=== PATIENT | female | born 2000 | race Caucasian/White ===

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

== ENCOUNTER 2019-04-08 01:16 | Emergency (ER) | payer SELFPAY ==
[2019-04-08 01:34] VITALS: BP 148/86; PULSE 105; RESP 18; TEMP 36.7; O2SAT 96; BMI 27.4
--- NOTE | 2019-04-08 01:36 | ED.GENADULT ---
HPI - General Adult <Pavan Summers DO - Last Filed: 04/08/19 18:00> General Chief complaint: Psychiatric Symptoms Stated complaint: Suicidal Time Seen by Provider: 04/08/19 01:31 Source: patient and police Mode of arrival: other (Police) Limitations: no limitations History of Present Illness HPI narrative: Patient is a 19-year-old female. Was brought in by police in handcuffs after they were called to the patient's house for an alleged suicide attempt. Patient called the crisis line earlier this evening and told them that she had cut herself and took medications. Her address was found through her cell phone location and the police were dispatched to that facility. Patient did admit to drinking alcohol this evening. She states that this evening she ?just broke ?. She has had a history of mental health issues in the past. Is currently on medications. Please report that the patient was combative and violent at the house which is why she was brought in in handcuffs. Patient stated that she did take medications this evening but it was double the dose of her normal medications. She did make superficial cuts to her arms. She did admit to calling the crisis line. She stated that she is scheduled to return to school in a week and I have and was ?not mentally prepared ?to do this which is what apparently put her over the edge this evening. Related Data Previous Rx's Medication Instructions Recorded cholecalciferol (vitamin D3) 1,000 unit PO QDAY #30 tab 10/14/17 [Vitamin D3] hydroxyzine pamoate [Vistaril] 50 mg PO BIDP PRN #60 cap 10/14/17 nitrofurantoin macrocrystal 100 mg 100 mg PO BEDTIME #30 cap 03/25/18 capsule mirtazapine 30 mg tablet 30 mg PO HS #30 tab 01/18/19 venlafaxine 150 mg tablet,extended 300 mg PO QAM #60 tab 01/18/19 release 24 hr prazosin 5 mg capsule 5 mg PO BEDTIME #30 cap 03/15/19 Allergies Allergy/AdvReac Type Severity Reaction Status Date / Time No Known Drug Allergies Allergy Verified 01/18/19 08:32 Review of Systems <Pavan Summers DO - Last Filed: 04/08/19 18:00> Constitutional Constitutional: Denies headache(s) ENT Ears, Nose, Mouth, and Throat: Denies headache(s) and Denies disequilibrium Cardiovascular Cardiovascular: Denies chest pain and Denies dyspnea Respiratory Respiratory: Denies dyspnea Gastrointestinal Gastrointestinal: Denies abdominal pain Genitourinary Genitourinary: Denies dysuria Musculoskeletal Musculoskeletal: Denies myalgias and Denies arthralgias Integumentary/Breasts Comments: Cut to her left arm and left leg Neurologic Neurologic: Reports behavioral changes, Denies confusion, Denies headache(s) and Denies disequilibrium Psychiatric Psychiatric: Reports anxiety, Reports behavioral changes, Denies confusion, Reports depression, Reports hopelessness, Reports irritability and Reports suicidal ideation Hematologic/Lymphatic Hematologic/Lymphatic: Denies easy bleeding and Denies easy bruising PFSH <Pavan Summers DO - Last Filed: 04/08/19 18:00> Medical History Anorexia nervosa (Chronic 08/13/17) Cannabis dependence (Chronic) Major depressive disorder, recurrent, in partial remission (Chronic) Oppositional behavior (Chronic) PTSD (post-traumatic stress disorder) (Chronic) Social anxiety disorder (Chronic) Subclinical hyperthyroidism (Chronic 08/13/17) Social History Smoking Status: Current some day smoker Exam <Pavan Summers DO - Last Filed: 04/08/19 18:00> Initial Vital Signs Initial Vital Signs: Vital Signs Temperature 98.0 F 04/08/19 01:34 Pulse Rate 105 H 04/08/19 01:34 Respiratory Rate 18 04/08/19 01:34 Blood Pressure 148/86 H 04/08/19 01:34 Pulse Oximetry 96 04/08/19 01:34 Const General: cooperative, comfortable, well developed and well groomed Orientation: alert and awake [facility] Head: normal to inspection and normocephalic Resp Effort & Inspection: normal respiratory effort Auscultation: clear to auscultation bilaterally Cardio Rate: regular rate Rhythm: regular rhythm Pulses: radial pulses present GI Inspection: non-distended Palpation: soft Skin Other: Patient with multiple superficial wounds on the volar aspect of her left arm. No active bleeding. None in need of interventions here in the ER. Patient also with multiple superficial cuts to the medial aspect to the distal 3rd of her left leg. No active bleeding. No surrounding erythema. None in need of intervention here in the ER. Neuro General: alert and awake Speech: speech normal Extrem General: normal to inspection and capillary refill normal Psych Appearance: disheveled Speech and Movement: agitated and restless Mood: anxious mood and No angry Affect: sad and anxious affect Attitude: cooperative Thought Process: normal Thought Content: no homicidality and suicidality Judgment: limited <Katelyn Bose MD - Last Filed: 04/09/19 16:28> Initial Vital Signs Initial Vital Signs: Vital Signs Temperature 98.0 F 04/08/19 01:34 Pulse Rate 105 H 04/08/19 01:34 Respiratory Rate 18 04/08/19 01:34 Blood Pressure 148/86 H 04/08/19 01:34 Pulse Oximetry 96 04/08/19 01:34 Course <Pavan Summers DO - Last Filed: 04/08/19 18:00> Orders Ordered: ED Orders 04/08/19 01:50 Consult to Office Cashier Stat 04/08/19 02:00 Urine Drug Screen, Rapid Stat 04/08/19 02:02 Acetaminophen Stat Complete Blood Count AUTO DIFF Stat Comprehensive Metabolic Panel Stat Ethanol (ETOH) Stat Test Serum,Qual Stat Salicylate Stat 04/08/19 05:34 Ethanol (ETOH) Stat Vital Signs Vital signs: Vital Signs - 8 hr 04/08/19 10:30 Pulse Rate 70 Respiratory Rate 16 Blood Pressure [Left Arm] 94/60 Pulse Oximetry 100 <Katelyn Bose MD - Last Filed: 04/09/19 16:28> Course Course Narrative: Juice note: Patient was signed out to me by Dr. Summers, pending mental health evaluation. galley worker did come and speak with the patient, who was sober and no longer suicidal. The patient was well connected with Dr. Musa of Psychiatry already, and also, he had social support form. Both the patient and social services technician felt it would be reasonable for the patient to follow up in an expedited fashion with Dr. Musa. The patient did contract for safety, and was deemed stable for discharge home. She is medically stable at the time of discharge. We have discussed the usual indications for return. Orders Ordered: ED Orders 04/08/19 01:50 Consult to Office Cashier Stat 04/08/19 02:00 Urine Drug Screen, Rapid Stat 04/08/19 02:02 Acetaminophen Stat Complete Blood Count AUTO DIFF Stat Comprehensive Metabolic Panel Stat Ethanol (ETOH) Stat Test Serum,Qual Stat Salicylate Stat 04/08/19 05:34 Ethanol (ETOH) Stat Vital Signs Vital signs: Vital Signs - 8 hr 04/08/19 10:30 Pulse Rate 70 Respiratory Rate 16 Blood Pressure [Left Arm] 94/60 Pulse Oximetry 100 Medical Decision Making <Pavan Summers, DO - Last Filed: 04/08/19 18:00> Medical Records Medical records reviewed: Yes I reviewed the patient's medical records. Lab Data Lab results reviewed: Yes I reviewed the patient's lab results. Result diagrams: 04/08/19 02:02 04/08/19 02:02 Labs: Lab Results 04/08/19 04/08/19 04/08/19 Range/Units 02:00 02:02 02:02 WBC 8.0 (4.5-11.0) X10^3/uL RBC 4.68 (4.0-5.2) X10^6/uL Hgb 14.5 (12.0-16.0) g/dL Hct 41.4 (36-46) % MCV 88.4 (80-100) fL MCH 31.0 (26-34) PG MCHC 35.0 (30-36) % RDW 13.0 (11.6-14.8) % Plt Count 233 (150-400) X10^3/uL Neut % (Auto) 54.6 (50-75) % Lymph % (Auto) 38.7 (25-40) % [place] % (Auto) 5.1 (3-14) % Eos % (Auto) 1.1 L (2-4) % Baso % (Auto) 0.5 (0-2) % Neut # (Auto) 4400 (8855-9182) /uL Lymph # (Auto) 3100 (3407-6748) /uL [place] # (Auto) 400 (0-900) /uL Eos # (Auto) 100 (0-450) /uL Baso # (Auto) 0 (0-100) /uL Sodium 147 H (137-145) mmol/L Potassium 4.1 (3.4-5.1) mmol/L Chloride 111 H (98-107) mmol/L Carbon Dioxide 22 (22-32) mmol/L BUN 8 (7-17) mg/dL Creatinine 0.80 (0.52-1.04) mg/dL Estimated GFR > 60.0 (>60) mL/min BUN/Creatinine Ratio 10.0 (6-22) Glucose 101 H (70-100) mg/dL Calcium 9.5 (8.4-10.2) mg/dL Total Bilirubin 0.3 (0.2-1.3) mg/dL AST 24 (14-36) IU/L ALT 12 (9-52) IU/L Alkaline Phosphatase 82 (38-126) U/L Total Protein 7.9 (6.3-8.2) g/dL Albumin 5.0 (3.5-5.0) g/dL Globulin 2.9 (1.7-4.1) g/dL Albumin/Globulin Ratio 1.7 (1.0-2.8) Serum , Qual (Negative) Salicylates < 1.0 (<20) mg/dL Urine Opiates Screen Negative (Negative) Ur Oxycodone Screen Negative (Negative) Urine Methadone Screen Negative (Negative) Acetaminophen < 10 L (10-30) ug/mL Ur Barbiturates Screen Negative (Negative) U Tricyclic Antidepress Negative (Negative) Ur Phencyclidine Scrn Negative (Negative) Ur Amphetamines Screen Negative (Negative) U Methamphetamines Scrn Negative (Negative) Ur MDMA Scrn (Ecstasy) Negative (Negative) U Benzodiazepines Scrn Negative (Negative) Urine Cocaine Screen Negative (Negative) U Marijuana (THC) Screen Positive H (Negative) Ethyl Alcohol 214 H ( - 10) mg/dL 04/08/19 04/08/19 Range/Units 02:02 05:34 WBC (4.5-11.0) X10^3/uL RBC (4.0-5.2) X10^6/uL Hgb (12.0-16.0) g/dL Hct (36-46) % MCV (80-100) fL MCH (26-34) PG MCHC (30-36) % RDW (11.6-14.8) % Plt Count (150-400) X10^3/uL Neut % (Auto) (50-75) % Lymph % (Auto) (25-40) % [place] % (Auto) (3-14) % Eos % (Auto) (2-4) % Baso % (Auto) (0-2) % Neut # (Auto) (8316-5030) /uL Lymph # (Auto) (0446-8304) /uL [place] # (Auto) (0-900) /uL Eos # (Auto) (0-450) /uL Baso # (Auto) (0-100) /uL Sodium (137-145) mmol/L Potassium (3.4-5.1) mmol/L Chloride (98-107) mmol/L Carbon Dioxide (22-32) mmol/L BUN (7-17) mg/dL Creatinine (0.52-1.04) mg/dL Estimated GFR (>60) mL/min BUN/Creatinine Ratio (6-22) Glucose (70-100) mg/dL Calcium (8.4-10.2) mg/dL Total Bilirubin (0.2-1.3) mg/dL AST (14-36) IU/L ALT (9-52) IU/L Alkaline Phosphatase (38-126) U/L Total Protein (6.3-8.2) g/dL Albumin (3.5-5.0) g/dL Globulin (1.7-4.1) g/dL Albumin/Globulin Ratio (1.0-2.8) Serum , Qual Negative (Negative) Salicylates (<20) mg/dL Urine Opiates Screen (Negative) Ur Oxycodone Screen (Negative) Urine Methadone Screen (Negative) Acetaminophen (10-30) ug/mL Ur Barbiturates Screen (Negative) U Tricyclic Antidepress (Negative) Ur Phencyclidine Scrn (Negative) Ur Amphetamines Screen (Negative) U Methamphetamines Scrn (Negative) Ur MDMA Scrn (Ecstasy) (Negative) U Benzodiazepines Scrn (Negative) Urine Cocaine Screen (Negative) U Marijuana (THC) Screen (Negative) Ethyl Alcohol 155 H ( - 10) mg/dL MDM Narrative Medical decision making narrative: 0500: After receiving permission from the patient I did talk with the patient's mother who has been in the waiting room since she arrived. The patient did not want her mother back in the emergency department but did state that I could talk with her. I updated the mother. Informing her that we needed to wait until patient's blood alcohol level was below legal limit and then we could re-evaluate. Do the low suspicion the patient had toxic ingestion other than alcohol. Her alcohol level has been decreasing. It is still above the limit. Patient has been sleeping and calm in the room. Social work consult has been placed Care turned over to day provider at change of shift to follow up on alcohol level and social work consultation. Patient has been calm and cooperative since being here in the emergency department. <Katelyn Bose MD - Last Filed: 04/09/19 16:28> Lab Data Labs: Lab Results 04/08/19 04/08/19 04/08/19 Range/Units 02:00 02:02 02:02 WBC 8.0 (4.5-11.0) X10^3/uL RBC 4.68 (4.0-5.2) X10^6/uL Hgb 14.5 (12.0-16.0) g/dL Hct 41.4 (36-46) % MCV 88.4 (80-100) fL MCH 31.0 (26-34) PG MCHC 35.0 (30-36) % RDW 13.0 (11.6-14.8) % Plt Count 233 (150-400) X10^3/uL Neut % (Auto) 54.6 (50-75) % Lymph % (Auto) 38.7 (25-40) % [place] % (Auto) 5.1 (3-14) % Eos % (Auto) 1.1 L (2-4) % Baso % (Auto) 0.5 (0-2) % Neut # (Auto) 4400 (9610-4080) /uL Lymph # (Auto) 3100 (9527-1128) /uL [place] # (Auto) 400 (0-900) /uL Eos # (Auto) 100 (0-450) /uL Baso # (Auto) 0 (0-100) /uL Sodium 147 H (137-145) mmol/L Potassium 4.1 (3.4-5.1) mmol/L Chloride 111 H (98-107) mmol/L Carbon Dioxide 22 (22-32) mmol/L BUN 8 (7-17) mg/dL Creatinine 0.80 (0.52-1.04) mg/dL Estimated GFR > 60.0 (>60) mL/min BUN/Creatinine Ratio 10.0 (6-22) Glucose 101 H (70-100) mg/dL Calcium 9.5 (8.4-10.2) mg/dL Total Bilirubin 0.3 (0.2-1.3) mg/dL AST 24 (14-36) IU/L ALT 12 (9-52) IU/L Alkaline Phosphatase 82 (38-126) U/L Total Protein 7.9 (6.3-8.2) g/dL Albumin 5.0 (3.5-5.0) g/dL Globulin 2.9 (1.7-4.1) g/dL Albumin/Globulin Ratio 1.7 (1.0-2.8) Serum , Qual (Negative) Salicylates < 1.0 (<20) mg/dL Urine Opiates Screen Negative (Negative) Ur Oxycodone Screen Negative (Negative) Urine Methadone Screen Negative (Negative) Acetaminophen < 10 L (10-30) ug/mL Ur Barbiturates Screen Negative (Negative) U Tricyclic Antidepress Negative (Negative) Ur Phencyclidine Scrn Negative (Negative) Ur Amphetamines Screen Negative (Negative) U Methamphetamines Scrn Negative (Negative) Ur MDMA Scrn (Ecstasy) Negative (Negative) U Benzodiazepines Scrn Negative (Negative) Urine Cocaine Screen Negative (Negative) U Marijuana (THC) Screen Positive H (Negative) Ethyl Alcohol 214 H ( - 10) mg/dL 04/08/19 04/08/19 Range/Units 02:02 05:34 WBC (4.5-11.0) X10^3/uL RBC (4.0-5.2) X10^6/uL Hgb (12.0-16.0) g/dL Hct (36-46) % MCV (80-100) fL MCH (26-34) PG MCHC (30-36) % RDW (11.6-14.8) % Plt Count (150-400) X10^3/uL Neut % (Auto) (50-75) % Lymph % (Auto) (25-40) % [place] % (Auto) (3-14) % Eos % (Auto) (2-4) % Baso % (Auto) (0-2) % Neut # (Auto) (9622-7182) /uL Lymph # (Auto) (5988-2109) /uL [place] # (Auto) (0-900) /uL Eos # (Auto) (0-450) /uL Baso # (Auto) (0-100) /uL Sodium (137-145) mmol/L Potassium (3.4-5.1) mmol/L Chloride (98-107) mmol/L Carbon Dioxide (22-32) mmol/L BUN (7-17) mg/dL Creatinine (0.52-1.04) mg/dL Estimated GFR (>60) mL/min BUN/Creatinine Ratio (6-22) Glucose (70-100) mg/dL Calcium (8.4-10.2) mg/dL Total Bilirubin (0.2-1.3) mg/dL AST (14-36) IU/L ALT (9-52) IU/L Alkaline Phosphatase (38-126) U/L Total Protein (6.3-8.2) g/dL Albumin (3.5-5.0) g/dL Globulin (1.7-4.1) g/dL Albumin/Globulin Ratio (1.0-2.8) Serum , Qual Negative (Negative) Salicylates (<20) mg/dL Urine Opiates Screen (Negative) Ur Oxycodone Screen (Negative) Urine Methadone Screen (Negative) Acetaminophen (10-30) ug/mL Ur Barbiturates Screen (Negative) U Tricyclic Antidepress (Negative) Ur Phencyclidine Scrn (Negative) Ur Amphetamines Screen (Negative) U Methamphetamines Scrn (Negative) Ur MDMA Scrn (Ecstasy) (Negative) U Benzodiazepines Scrn (Negative) Urine Cocaine Screen (Negative) U Marijuana (THC) Screen (Negative) Ethyl Alcohol 155 H ( - 10) mg/dL Discharge Plan Departure Patient Disposition: Home Clinical Impression: Post traumatic stress disorder (PTSD), Superficial laceration of skin Alcohol intoxication Qualifiers: Complication of substance-induced condition: with unspecified complication Qualified Code(s): F10.929 - Alcohol use, unspecified with intoxication, unspecified Depression Qualifiers: Depression Type: unspecified Qualified Code(s): F32.9 - Major depressive disorder, single episode, unspecified Discharge Date/Time: 04/08/19 11:19 Instructions: Alcohol Use Disorder, DI for Depression -- Adult, DI for Suicidal Ideation-Adult Prescriptions: No Action mirtazapine 30 mg tablet 30 mg PO HS Qty: 30 RF: 5 venlafaxine 150 mg tablet extended release 24hr 300 mg PO QAM Qty: 60 RF: 5 hydroxyzine pamoate [Vistaril] 50 MG capsule 50 mg PO BIDP PRNQty: 60 RF: 5 cholecalciferol (vitamin D3) [Vitamin D3] 1,000 UNIT tablet 1,000 unit PO QDAY Qty: 30 RF: 5 prazosin 5 mg capsule 5 mg PO BEDTIME Qty: 30 RF: 5 nitrofurantoin macrocrystal 100 mg capsule 100 mg PO BEDTIME Qty: 30 RF: 6 Referrals: Magdalena Jimenez MD [Primary Care Provider] - Barbara Musa DO [Physician] -
--- NOTE | 2019-04-08 02:00 | PC.NURSE ---
Pt brought in by [place] police after they were called to the patient's home for an alleged suicide attempt. Pt called [facility] crisis line onesimo stating she had cut herself and took medications and refused to give her location. Police were dispatched to location of her cell phone and brought pt to ED. States she has a history mental health issues that she takes medications she can't recall names of for and took double her evening dosage. Pt endorses drinking half a bottle of white zinfandel wine onesimo and has a history of mental health issues in the past. Pt reports that she is returning to school next week and wasn't mentally perpared and she just broke and drank too much wine. Pt has recent superficial cuts to left inner forearm and left leg. Pt has previous superfical cuts to all extremities. Pt denies wanting to harm self or others and denies pain.
[2019-04-08 02:13] LABS: Urine Tetrahydrocannabinol Positive (Negative)
[2019-04-08 02:15] LABS: Urine Amphetamines Negative (Negative); Urine Barbiturates Negative (Negative); Urine Benzodiazepines Negative (Negative); Urine Cocaine Negative (Negative); Urine MDMA Negative (Negative); Urine Methadone Negative (Negative); Urine Methamphetamines Negative (Negative); Urine Morphine/Opi cutoff 2000 Negative (Negative); Urine Oxycodone Negative (Negative); Urine Phencyclidine Negative (Negative); Urine Tricyclic Antidepressant Negative (Negative)
[2019-04-08 02:17] LABS: Add Manual Diff / Slide Review NO; Basophils Absolute Auto 0 /uL (0-100); Basophils Percent Auto 0.5 % (0-2); Eosinophils Absolute Auto 100 /uL (0-450); Eosinophils Percent Auto 1.1 % (2-4); Hematocrit 41.4 % (36-46); Hemoglobin 14.5 g/dL (12.0-16.0); Lymphocytes Absolute Auto 3100 /uL (1100-4500); Lymphocytes Percent Auto 38.7 % (25-40); Mean Corpuscular Volume 88.4 fL (80-100); Monocytes Absolute Auto 400 /uL (0-900); Monocytes Percent Auto 5.1 % (3-14); Neutrophils Absolute Auto 4400 /uL (1500-7000); Neutrophils Percent Auto 54.6 % (50-75); Platelet Count 233 X10^3/uL (150-400); Red Blood Cell Count 4.68 X10^6/uL (4.0-5.2)
[2019-04-08 02:25] LABS: Acetaminophen < 10 ug/mL (10-30); Alanine Aminotransferase 12 IU/L (9-52); Albumin Globulin Ratio 1.7 (1.0-2.8); Alkaline Phosphatase 82 U/L (38-126); Aspartate Aminotransferase 24 IU/L (14-36); Bilirubin Total 0.3 mg/dL (0.2-1.3); Blood Urea Nitrogen 8 mg/dL (7-17); Calcium 9.5 mg/dL (8.4-10.2); Carbon Dioxide 22 mmol/L (22-32); Chloride 111 mmol/L (98-107); Estimated Glomerular Filt Rate > 60.0 mL/min (>60); Ethanol (ETOH) 214 mg/dL; Globulin 2.9 g/dL (1.7-4.1); Glucose 101 mg/dL (70-100); HEMOLYSIS < 15 (0-50); Potassium 4.1 mmol/L (3.4-5.1); Salicylate < 1.0 mg/dL (<20); Sodium 147 mmol/L (137-145); Total Protein 7.9 g/dL (6.3-8.2)
[2019-04-08 02:27] LABS: Pregnancy Test Serum,Qual Negative (Negative)
[2019-04-08 05:51] LABS: Ethanol (ETOH) 155 mg/dL
[2019-04-08 07:11] VITALS: BP 96/63; PULSE 86; RESP 14; O2SAT 97
--- NOTE | 2019-04-08 10:01 | PC.NURSE ---
called dr vance office to try to move up the pt's oct appt. they will call back.
[2019-04-08 10:30] VITALS: BP 94/60; PULSE 70; RESP 16; O2SAT 100
--- NOTE | 2019-04-08 10:42 | PC.NURSE ---
Lakshmi from case management is in the room with pt and pt's mom.
--- NOTE | 2019-04-08 11:10 | PC.NURSE ---
dr. vance office called and added an appt for pt on 04/23/19. pt also given a didg'neishaic hand out.
--- NOTE | 2019-04-08 11:21 | PC.NURSE ---
Gave patient her belongings back, cell phone and earrings.
--- NOTE | 2019-04-08 11:45 | CM.SWNOTE ---
Social Work Consult Note: From HPI narrative: Patient is a 19-year-old female. Was brought in by police in handcuffs after they were called to the patient's house for an alleged suicide attempt. MH Assessment Reviewed chart and then reviewed SW consult request w/ Dr Bose. SW met bedside with suyapa Max by Vanessa. Vanessa makes good eye contact w/this CHAR FILTER OPERATOR, she acts her stated age and is tearful and regretful throughout our conversation. Vanessa has scars all over her body, UE/LE, she has fresh superficial wounds on her wrist. Vanessa admits to a long standing h/o cutting but has been in remission for at least 6 months, she states I had a relapse last night. Vanessa picks at her skin throughout our visit. Vanessa admits to not remembering much about last night she drank approx. one bottle of wine, took more pills than her prescribed amount but can't remember how much. Vanessa does not admit to this being a suicide attempt but admits to thinking about multiple times a day w/no intentional plan. 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 Vanessa states lately everything has gone to shit w/ recent break up from a boyfriend and needing to move out of their apt and then a roommate situation not working out. Vanessa is currently living w/her mom and 7 siblings (9 siblings total). Vanessa denies current SI/HI and denies auditory hallucinations. Vanessa does not have insurance currently. She makes too much to qualify for Medicaid right now, she did not makes the calls to secure another plan;she will likely qualify when her work hours go down during school, she knows what she needs to do to to get Medicaid again once her income changes. MH Hx: Anorexia nervosa (Chronic 08/13/17) MDD,Major depressive disorder, recurrent, in partial remission (Chronic) Oppositional behavior (Chronic) PTSD (post-traumatic stress disorder) (Chronic) Social anxiety disorder (Chronic) MH Tx: Vanessa is seen by Dr Musa. She was last seen early February and next appt is early Apr. Vanessa states she has had multiple MH hospitalizations since she was 13 for MDD, she has been to [facility], [facility] and [facility] in [facility]. Short term stays for stabilization. Vanessa reports two suicide attempts, one at 13 yo, w/intentional overdose of Zoloft and another she did not report,15 yo she attempted to hang herself in the [place] and the branch broke. CD: Cannabis dependence (Chronic). Vanessa denies having a drug or alcohol problem but will admit that recreational marijuana and alcohol use are not helping her MH stability. Legal: None reported. Supports: Family, Dr Musa, making art. has a running car, knows how to fix if it breaks, starting a welding program through [employer]. Has a job at [employer] that she plans to keep while going to school. Currently living w/mom and siblings if mom continues to allow. Plan: Asked Vanessa what her goals for herself were; Vanessa wants to go home, she does not want to go to an inpt MH setting and doesn't feel these stays have been helpful to her in the past. Vanessa willing to safety plan w/this CHAR FILTER OPERATOR and does not meet criteria to be detained against her will for inpt MH stay. With Vanessa's permission, contacted [employer]. This CHAR FILTER OPERATOR met w/Vanessa and her mom at bedside, discussed safety planning. Mom Natalie did participate in some shaming directed at Vanessa in front of this CHAR FILTER OPERATOR but also admitted to being terrified for Vanessa, her other children and herself d/t Vanessa's self destructive and impulsive behaviors. Natalie asking Vanessa to consider inpt MH stay and Vanessa refuses. Mom Natalie explains they will need to draft a contract upon returning home if Vanessa is to continue to stay w/her family. Vanessa pays rent. Vanessa agreeable to working on a behavior contract w/her mom. [employer] E[employer] is a Physical Therapist here at but has taken the day off. She has agreed to drive Vanessa home. Dr Musa's office has been contacted and Vanessa has been scheduled for Apr 23 at 1315. Her Apr appt has also been kept. With Vanessa's permission contacted [facility] and requested SANKET call Vanessa at 1730 per Vanessa's suggestion, [facility] [place] if she deems necessary. Strongly encouraged Vanessa to call [facility] at [phone] earlier than 1730 if needed for stabilization and Vanessa agrees to this. In addition, strongly encouraged Vanessa to drop into [facility] during walk in assessment times , walk in Mondays at 0600 (arrive earlier to line up, first come, first serve basis), Tuesdays Substance abuse 0600, provided brochure. Vanessa explains she has multiple siblings that also cut as a form of emotional coping. Provided Natalie w/information about Family Education and Support at [facility] P# [phone],Vicente Warner. Updated YASMANY Maher w/above plan. Faina Carrero MSW
== END 2019-04-08 11:19 | disposition home or self-care (01) ==
PROVIDERS: Emergency Medicine; Emergency Provider Emergency Medicine; PCP Family Medicine
DX: F10.929 Alcohol use, unspecified with intoxication, unspecified (principal); F32.9 Major depressive disorder, single episode, unspecified
CPT/HCPCS: 36415; 80053; 80305; 80320; 80329; 84703; 85025; 99283; G0480

== ENCOUNTER → 2019-09-29 18:54 | Outpatient (ROUT) | payer OTHER, MEDICAID, SELFPAY ==
[2019-09-29 20:36] LABS: Urine N gonorrhoeae NOT DETECTED
[2019-09-29 20:40] LABS: Urine Chlamydia NOT DETECTED
== END ==
PROVIDERS: PCP Family Medicine; Visit Provider Family Medicine
DX: A64 Unspecified sexually transmitted disease (principal)
CPT/HCPCS: 87491; 87591

== ENCOUNTER → 2021-06-01 12:18 | Outpatient (CLI) | payer OTHER, MEDICAID, SELFPAY ==
[2021-06-01 13:12] LABS: Add Manual Diff / Slide Review NO; Basophils Absolute Auto 0 /uL (0-100); Basophils Percent Auto 0.5 % (0-2); Eosinophils Absolute Auto 300 /uL (0-450); Eosinophils Percent Auto 3.7 % (2-4); Hematocrit 40.4 % (36-46); Hemoglobin 14.1 g/dL (12.0-16.0); Lymphocytes Absolute Auto 2500 /uL (1100-4500); Lymphocytes Percent Auto 34.7 % (25-40); Mean Corpuscular HGB Conc 34.9 % (30-36); Mean Corpuscular Hemoglobin 31.1 PG (26-34); Mean Corpuscular Volume 89.2 fL (80-100); Monocytes Absolute Auto 500 /uL (0-900); Monocytes Percent Auto 6.4 % (3-14); Neutrophils Absolute Auto 3900 /uL (1500-7000); Neutrophils Percent Auto 54.7 % (50-75); Platelet Count 194 X10^3/uL (150-400); Red Blood Cell Count 4.53 X10^6/uL (4.0-5.2); White Blood Cell Count 7.2 X10^3/uL (4.5-11.0)
[2021-06-01 14:15] LABS: Alanine Aminotransferase 21 IU/L (<35); Albumin 4.5 g/dL (3.5-5.0); Albumin Globulin Ratio 1.7 (1.0-2.8); Alkaline Phosphatase 83 U/L (38-126); Aspartate Aminotransferase 22 IU/L (14-36); BUN Creatinine Ratio 19.3 (6-22); Bilirubin Total 0.4 mg/dL (0.2-1.3); Blood Urea Nitrogen 16 mg/dL (7-17); Calcium 9.8 mg/dL (8.4-10.2); Carbon Dioxide 29 mmol/L (22-32); Chloride 101 mmol/L (98-107); Estimated Glomerular Filt Rate > 60.0 mL/min (>60); Globulin 2.7 g/dL (1.7-4.1); Glucose 98 mg/dL (70-100); HEMOLYSIS < 15 (0-50); Potassium 4.4 mmol/L (3.4-5.1); Sodium 138 mmol/L (137-145); Total Protein 7.2 g/dL (6.3-8.2)
[2021-06-01 14:43] LABS: Thyroid Stimulating Hormone 0.955 uIU/mL (0.47-4.68)
[2021-06-01 14:48] LABS: Ferritin 29 ng/mL (6-137)
== END ==
PROVIDERS: PCP Family Medicine; Referring Provider Psychiatry & Neurology Psychiatry; Visit Provider Psychiatry & Neurology Psychiatry
DX: E05.90 Thyrotoxicosis, unspecified without thyrotoxic crisis or storm (principal); F33.9 Major depressive disorder, recurrent, unspecified; F50.00 Anorexia nervosa, unspecified; Z51.81 Encounter for therapeutic drug level monitoring
CPT/HCPCS: 36415; 80053; 82728; 84443; 85025

== ENCOUNTER → 2021-07-16 11:49 | Outpatient (CLI) | payer OTHER, MEDICAID, SELFPAY ==
[2021-07-16 13:20] LABS: COVID19 -Nasal RAPID POSITIVE (Negative)
== END ==
PROVIDERS: PCP Family Medicine; Visit Provider Physician Assistant
DX: Z20.822 Contact with and (suspected) exposure to COVID-19 (principal); R09.81 Nasal congestion; R05.9 Cough, unspecified; R50.9 Fever, unspecified; R19.7 Diarrhea, unspecified
CPT/HCPCS: 87635

== ENCOUNTER → 2024-10-09 11:28 | Outpatient (CLI) | payer OTHER, SELFPAY ==
[2024-10-09 11:46] LABS: Add Manual Diff / Slide Review NO; Basophils Absolute Auto 0 /uL (0-100); Basophils Percent Auto 0.6 % (0-2); Eosinophils Absolute Auto 300 /uL (0-450); Eosinophils Percent Auto 4.7 % (2-4); Hematocrit 41.9 % (36-46); Hemoglobin 14.4 g/dL (12.0-16.0); Lymphocytes Absolute Auto 2700 /uL (1100-4500); Lymphocytes Percent Auto 41.6 % (25-40); Mean Corpuscular HGB Conc 34.3 % (30-36); Mean Corpuscular Volume 90.2 fL (80-100); Monocytes Absolute Auto 400 /uL (0-900); Monocytes Percent Auto 6.9 % (3-14); Neutrophils Absolute Auto 3000 /uL (1500-7000); Neutrophils Percent Auto 46.2 % (50-75); Platelet Count 213 X10^3/uL (150-400); Red Blood Cell Count 4.64 X10^6/uL (4.0-5.2); White Blood Cell Count 6.4 X10^3/uL (4.5-11.0)
[2024-10-09 11:58] LABS: Alanine Aminotransferase 20 IU/L (<35); Albumin 4.5 g/dL (3.5-5.0); Albumin Globulin Ratio 1.9 (1.0-2.8); Alkaline Phosphatase 87 U/L (38-126); Aspartate Aminotransferase 20 IU/L (14-36); BUN Creatinine Ratio 18.1 (6-22); Bilirubin Total 0.4 mg/dL (0.2-1.3); Blood Urea Nitrogen 13 mg/dL (7-17); Calcium 9.6 mg/dL (8.4-10.2); Carbon Dioxide 27 mmol/L (22-32); Chloride 105 mmol/L (98-107); Cholesterol 188 mg/dL (140-199); Estimated Glomerular Filt Rate > 60 mL/min (>60); Globulin 2.4 g/dL (1.7-4.1); Glucose 112 mg/dL (70-100); HDL Cholesterol 77 mg/dL (40-60); HEMOLYSIS < 15 (0-50); LDL Cholesterol Calculated 96 mg/dL (<100); Potassium 4.9 mmol/L (3.4-5.1); Sodium 139 mmol/L (137-145); Total Protein 6.9 g/dL (6.3-8.2); Triglycerides 77 mg/dL (35-150)
[2024-10-09 11:59] LABS: Lithium < 0.2 mmol/L (0.6-1.2)
== END ==
PROVIDERS: Referring Provider Psychiatry & Neurology Psychiatry; Visit Provider Psychiatry & Neurology Psychiatry
DX: F33.9 Major depressive disorder, recurrent, unspecified (principal); Z79.899 Other long term (current) drug therapy
CPT/HCPCS: 36415; 80053; 80061; 80178; 84443; 85025

== ENCOUNTER → 2024-11-04 09:39 | Outpatient (CLI) | payer OTHER, SELFPAY ==
[2024-11-04 10:37] LABS: Lithium 0.3 mmol/L (0.6-1.2)
== END ==
PROVIDERS: Referring Provider Psychiatry & Neurology Psychiatry; Visit Provider Psychiatry & Neurology Psychiatry
DX: F33.9 Major depressive disorder, recurrent, unspecified (principal); F40.10 Social phobia, unspecified; F43.10 Post-traumatic stress disorder, unspecified; F50.00 Anorexia nervosa, unspecified; F12.20 Cannabis dependence, uncomplicated; Z79.899 Other long term (current) drug therapy
CPT/HCPCS: 36415; 80178; 99214

== ENCOUNTER → 2025-04-08 12:05 | Outpatient (CLI) | payer BC, SELFPAY ==
[2025-04-08 13:11] LABS: Add Manual Diff / Slide Review NO; Hematocrit 41.5 % (36-46); Hemoglobin 14.6 g/dL (12.0-16.0); Lymphocytes Absolute Auto 1800 /uL (1100-4500); Mean Corpuscular HGB Conc 35.2 % (30-36); Mean Corpuscular Hemoglobin 31.3 PG (26-34); Mean Corpuscular Volume 88.9 fL (80-100); Platelet Count 231 X10^3/uL (150-400)
[2025-04-08 13:28] LABS: Lithium 0.3 mmol/L (0.6-1.2)
[2025-04-08 13:32] LABS: Alanine Aminotransferase 19 IU/L (<35); Albumin 4.7 g/dL (3.5-5.0); Albumin Globulin Ratio 1.8 (1.0-2.8); Alkaline Phosphatase 91 U/L (38-126); Blood Urea Nitrogen 11 mg/dL (7-17); Calcium 9.7 mg/dL (8.4-10.2); Carbon Dioxide 25 mmol/L (22-32); Chloride 103 mmol/L (98-107); Estimated Glomerular Filt Rate > 60 mL/min (>60); Globulin 2.6 g/dL (1.7-4.1); Glucose 89 mg/dL (70-99); HEMOLYSIS < 15 (0-50); Potassium 4.6 mmol/L (3.4-5.1); Sodium 137 mmol/L (137-145); Total Protein 7.3 g/dL (6.3-8.2)
[2025-04-08 14:01] LABS: TSH w/ Reflex to FT4 0.98 uIU/mL (0.47-4.68)
== END ==
PROVIDERS: Referring Provider Psychiatry & Neurology Psychiatry; Visit Provider Psychiatry & Neurology Psychiatry
DX: Z79.899 Other long term (current) drug therapy (principal)
CPT/HCPCS: 36415; 80053; 80178; 84443; 85025

== ENCOUNTER → 2025-05-23 08:57 | Outpatient (CLI) | payer OTHER, SELFPAY ==
[2025-05-23 10:21] LABS: Lithium 0.8 mmol/L (0.6-1.2)
== END ==
PROVIDERS: Referring Provider Psychiatry & Neurology Psychiatry; Visit Provider Psychiatry & Neurology Psychiatry
DX: Z79.899 Other long term (current) drug therapy (principal)
CPT/HCPCS: 36415; 80178

== ENCOUNTER → 2025-07-27 11:00 | Outpatient (CLI) | payer OTHER, SELFPAY ==
[2025-07-27 12:29] LABS: Lithium 0.4 mmol/L (0.6-1.2)
== END ==
PROVIDERS: Referring Provider Psychiatry & Neurology Psychiatry; Visit Provider Psychiatry & Neurology Psychiatry
DX: Z79.899 Other long term (current) drug therapy (principal)
CPT/HCPCS: 36415; 80178